=== PATIENT | male | born 2005 | race Hispanic/Latino ===

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

== ENCOUNTER 2023-08-22 10:44 | Outpatient (CLI) | payer BC, OTHER, SELFPAY ==
--- NOTE | ~2023-08-22 | MR_ITS ---
EXAMINATION: MR brain/brain stem wo con DATE: 08/22/2023 11:24 INDICATION: R41.3 - Other amnesia TECHNIQUE: Magnetic resonance imaging (MRI) of the brain and brainstem was performed without intraven ous contrast. Sequences included sagittal and axial T1-weighted SE, axial diffusion-weighted FS EPI A SSET, axial T2*-weighted GRE, axial T2-weighted FLAIR Propeller, and axial T2-weighted Propeller. Pos tcontrast axial and coronal T1-weighted SE was obtained. Apparent diffusion coefficient (ADC) maps we re created. COMPARISON: None. FINDINGS: No abnormal restricted diffusion to suggest acute ischemic infarct. No MRI evidence of hemorrhage or extra-axial collection. No suspicious foci of susceptibility to suggest prior intraparenchymal hemorr ching. Normal white matter signal. No evidence of advanced or lobar predominant parenchymal volume los s. The basilar cisterns are patent. Flow voids are preserved. Paranasal sinuses are within normal zapien its. Globes and orbital contents are within normal limits. IMPRESSION: Normal MR brain findings. Reviewed, dictated and finalized at location K. IMPRESSION: Normal MR brain findings.
== END 2023-08-22 10:45 | disposition home or self-care (01) ==
PROVIDERS: PCP Registered Nurse; Visit Provider Student in an Organized Health Care Education/Training Program
DX: R41.3 Other amnesia (principal)
CPT/HCPCS: 70551

== ENCOUNTER 2024-09-13 09:09 | Emergency (ER) | payer BC, SELFPAY ==
[2024-09-13 09:24] VITALS: BP 138/71; PULSE 76; RESP 16; TEMP 37.3; O2SAT 99
--- NOTE | 2024-09-13 09:39 | ED.NAVMDI ---
HPI - Nausea/Vomiting/Diarrhea General Chief complaint: Nausea/Vomiting/Diarrhea Stated complaint: ABDALLA,stomach pain,diarrhea,nauseated Time Seen by Provider: 09/13/24 09:40 Source: patient Mode of arrival: ambulatory Limitations: no limitations History of Present Illness HPI Narrative: 19-year-old male presents with complaint of abdominal cramping, diarrhea, nausea while at work. Patient states he also has a headache. Had diarrhea 3 times and wanted to leave work. Was told he needed work note. Afebrile. No abdominal pain at this time. Has not vomited. Able to keep down water. All systems reviewed and negative except as noted above. Related Data Allergies Allergy/AdvReac Type Severity Reaction Status Date / Time No Known Allergies Allergy Verified 09/13/24 09:14 Review of Systems Review of Systems: CONSTITUTIONAL: Denies fever, chills, or sweats. reports fatigue. EYES: Denies visual changes, redness, or discharge. ENT: Denies rhinorrhea, congestion, sore throat, or otalgia. CARDIOVASCULAR: Denies chest pain, palpitations, or edema. RESPIRATORY: Denies cough or dyspnea. GASTROINTESTINAL: Reports abdominal cramping, nausea, and diarrhea. denies vomiting. GENITOURINARY: Denies dysuria or hematuria. SKIN: Denies rash or itching. MUSCULOSKELETAL: Denies back pain, joint pain, or myalgia. NEUROLOGIC: Reports headache. Denies numbness, or weakness. PSYCHIATRIC: Denies anxiety or depression. All other systems reviewed are negative, except as documented in HPI. FORMERLY [facility] Past Medical History Medical History No significant medical problems Surgical History Surgical History No significant past surgical history Social History Social History (System 08/04/24 @ 11:39 by Jan Llanos) Smoking status: Never smoker Alcohol intake: never Substance use: never Substance use type: does not use Lack of Transportation: No Lack of Food: Never True Current Housing: I Have Housing Concerned About Future Housing: No Difficulty Paying Gas/Electric Bills: No Difficulty Paying for Meds: No Currently Unemployed: No Education: Trade/Vocational Certificate Difficulty w/ Childcare or Family Care: No Living arrangements: with family Occupation/Education: occupation Gender identity (if verbalized by the patient): Male Comments At time of signature, agree with nursing past medical, surgical, social and family history. There is no relevant family history pertinent to the presenting complaint. Exam Narrative: GENERAL: This is a well-nourished, well-developed patient, in no apparent distress. HEAD: normocephalic, atraumatic. EYES: PERRL. Sclera clear/white. Vision is grossly intact. EARS: External ears normal NOSE: External nose normal NECK: Neck supple, non-tender without lymphadenopathy, masses or thyromegaly. CARDIOVASCULAR: Regular rate and rhythm without murmurs, gallops, or rubs. RESPIRATORY: Clear to auscultation. Breath sounds equal bilaterally. No wheezes, rales, or rhonchi. GASTROINTESTINAL: Abdomen soft, non-tender, nondistended. Bowel sounds are active. No hepato-splenomegaly, or palpable masses. No guarding. SKIN: warm, Dry, intact with no suspicious lesions or rash, good texture and turgor. NEURO: awake, alert, and oriented to person, place and time. There were no obvious focal neurologic abnormalities. EXTREMITIES: No joint tenderness, effusion, or edema noted. Course Course Level of Care: Express Care Visit Vital Signs Vital signs: Vital Signs Temperature 37.3 C 09/13/24 09:24 Pulse Rate 76 09/13/24 09:24 Respiratory Rate 16 09/13/24 09:24 Blood Pressure 138/71 09/13/24 09:24 Pulse Oximetry 99 09/13/24 09:24 Oxygen Delivery Room Air 09/13/24 09:24 Temperature 37.3 C 09/13/24 09:24 Pulse Rate 76 09/13/24 09:24 Respiratory Ra
== END 2024-09-13 10:02 | disposition home or self-care (01) ==
PROVIDERS: Emergency Provider Nurse Practitioner Family; PCP Registered Nurse
DX: A08.4 Viral intestinal infection, unspecified (principal)
CPT/HCPCS: 99213; G0463

== ENCOUNTER 2024-09-16 00:38 | Emergency (ER) | payer BC, SELFPAY ==
[2024-09-16] VITALS (7 sets, daily range): BP systolic 131–163; BP diastolic 82–94; PULSE 83–103; RESP 15–25; TEMP 36.1; O2SAT 97–99
[2024-09-16] MEDS: methylPREDNISolone SOD SUCC 125 MG VIAL IV PUSH (02:12)
[2024-09-16] MEDS: FAMOTIDINE 20 MG/2 ML VIAL IV PUSH (02:13)
[2024-09-16] MEDS: diphenhydrAMINE HCl INJ 50 MG/ML VIAL 25 MG IV PUSH (02:13)
--- NOTE | 2024-09-16 02:45 | ED.ALLEREA ---
HPI - Allergic Reaction General Chief complaint: Allergic Reaction Stated complaint: rash Time Seen by Provider: 09/16/24 02:03 Source: patient Mode of arrival: ambulatory Limitations: no limitations History of Present Illness HPI narrative: This is a 19 year old male that presents to the ER for a rash that started last night. Reports he started to feel itchy after work. Rolled up his sleeves and noted a rash. Reports rash to the arms, chest, back and legs. No known exposures. Related Data Allergies Allergy/AdvReac Type Severity Reaction Status Date / Time No Known Allergies Allergy Verified 09/16/24 01:09 Review of Systems Review of Systems: CONSTITUTIONAL: Denies fever RESPIRATORY: Denies dyspnea. SKIN: Reports rash and itching. All systems reviewed & are unremarkable except as noted in HPI and below PMFSH Past Medical History Medical History No significant medical problems Surgical History Surgical History No significant past surgical history Social History Social History (System 08/04/24 @ 11:39 by Jan Llanos) Smoking status: Never smoker Alcohol intake: never Substance use: never Substance use type: does not use Lack of Transportation: No Lack of Food: Never True Current Housing: I Have Housing Concerned About Future Housing: No Difficulty Paying Gas/Electric Bills: No Difficulty Paying for Meds: No Currently Unemployed: No Education: Trade/Vocational Certificate Difficulty w/ Childcare or Family Care: No Living arrangements: with family Occupation/Education: occupation Gender identity (if verbalized by the patient): Male Exam Narrative: GENERAL: Well-appearing, well-nourished, and in no acute distress. HEAD: Normocephalic, atraumatic. EYES: EOMI. ENT: Nares clear, no rhinorrhea or epistaxis. Mucous membranes moist. Oropharynx without tonsillar hypertrophy exudate or other lesions. No swelling of the mouth or throat CHEST: Clear to auscultation. No respiratory distress. No wheezes rales or rhonchi HEART: Regular rate and rhythm. No murmur heard. Normal peripheral pulses. EXTREMITIES: Normal range of motion. No edema. SKIN: Warm, dry. Hives present on the arms, chest, back and legs NEURO: No focal deficits. Alert and oriented x3. PSYCH: Normal mood and affect Course Course Emergency Course: patient with improvement after antihistamines and steroid Vital Signs Vital signs: Vital Signs Temperature 97 F L 09/16/24 00:41 Pulse Rate 103 H 09/16/24 00:41 Respiratory Rate 15 09/16/24 00:41 Blood Pressure 163/92 H 09/16/24 00:41 Pulse Oximetry 99 09/16/24 00:41 Oxygen Delivery Room Air 09/16/24 00:41 Temperature 97 F L 09/16/24 00:41 Pulse Rate 83 09/16/24 02:45 Respiratory Rate 17 09/16/24 02:45 Blood Pressure 131/94 H 09/16/24 02:01 Pulse Oximetry 99 09/16/24 02:45 Oxygen Delivery Room Air 09/16/24 01:09 MDM - Allergic Reaction MDM Narrative Medical decision making narrative: patient presents to the emergency department for hives. No swelling in his throat or mouth. No difficulty breathing. Patient with relief after antihistamines and steroid. Instructed on continued use of antihistamines. He is to follow up with provider. He was given warnings to return to the ER Differential Diagnosis Differential diagnosis: Likely allergic reaction, contact dermatitis and urticaria Critical Care Time Critical Care Time Critical Care Time: No Discharge Plan Discharge Clinical Impression: Urticaria Patient Disposition: Home, Self-Care Condition: Improved Instructions: Urticaria (ED) Additional Instructions: Return to the emergency department if you experience difficulty swallowing, trouble breathing, or any other symptoms that are concerning to you Take a Pepcid and Zyrtec daily. Benadryl as needed for severe itching Follow-up with primary care doctor Prescriptions: No Action dicyclomine 20 mg tablet 20 mg PO Q6-8H PRN (Reason: abdominal cramping) Qty: 20 0RF ondansetron 4 mg tablet,disintegrating 4 mg PO Q8H PRN (Reason: nausea and vomiting) Qty: 12 0RF Follow-up/Referrals: Han,SHANNON Hester [Primary Care Provider] -
== END 2024-09-16 04:19 | disposition home or self-care (01) ==
PROVIDERS: Emergency Provider Physician Assistant; PCP Registered Nurse
DX: L50.9 Urticaria, unspecified (principal)
CPT/HCPCS: 96374; 96375; 99284; J1200; J2919